=== PATIENT | male | born 1960 | race Caucasian/White ===

== ENCOUNTER 2018-09-16 13:09 | Emergency (ER) | payer SELFPAY ==
[~2018-09-16] VITALS: Ht 162.6 cm; Wt 65.8 kg
[2018-09-16 13:20] VITALS: BP 134/74; Ht 162.6 cm; Wt 65.8 kg
== END 2018-09-16 15:10 | disposition home or self-care (01) ==
LOC: ED 13:09
DX: Z03.89 Encounter for observation for other suspected diseases and conditions ruled out (principal)